=== PATIENT | male | born 1955 | race Caucasian/White ===

== ENCOUNTER 2018-06-22 07:52 | Emergency (ER) | payer OTHER ==
--- OUTSIDE RECORDS SUMMARY | 2018-06-22 08:10 | XMS REPORT ---
:1955 External Reference #:[id number] Author Organization [facility] Address [address], [address] [place] [address] Phone [phone] Care Team Providers Name Role Phone Kate Vora RPAC Care Team Information Curtain Inspector Unavailable Kate Vora RPAC Primary Care Physician Unavailable Payers Type Date Identification Numbers Payment Provider Subscriber Commercial Expires: Policy Number: Lashae Boogielo 2016 [id number] Group Name: Trevon [place] [address] [address] PayID: [id number] ROSA Price [address] Commercial Policy Number: [id number] [facility] [employer] Plan [facility] Ubaldo Boogielo Group Number: [id number] [address] PayID: [id number] [place] [address] Problems Date Description Provider Status Onset: 10/30/2014 Gout Kate Vora RPAC Active Onset: 08/10/2014 Pityriasis versicolor Kate Vora RPAC Active Note: recurrent Onset: 10/17/2011 Hyperlipidemia Kate Vora RPAC Active Onset: 10/17/2011 Benign essential hypertension Kate Vora RPAC Active Onset: 01/31/2018 Asthma without status asthmaticus Kate Vora RPAC Active Onset: 03/25/2018 Paroxysmal atrial fibrillation Kate Vora RPAC Active Note: 03/2018, cardioverted 05/2018 Onset: 04/02/2018 Mixed hyperlipidemia Rae Garcia MD Active Onset: 04/02/2018 Pure hypercholesterolemia Rae Garcia MD Active Onset: 04/02/2018 Unspecified systolic (congestive) Kate Vora, Active heart failure RPAC Onset: 06/07/2018 Cardiomyopathy, unspecified Santiago Cunha Active Juan Carlos, FACC Onset: 12/24/2017 Acute bronchitis Kate Vora, Resolved RPAC Resolved: 03/27/2018 Onset: 01/31/2018 Cough Kate Vora, RPAC Resolved Resolved: 03/27/2018 Family History Date Family Member(s) Problem(s) Comments Father due to Drowning () Mother Glaucoma cataracts Mother Atrial Fibrillation Social History Type Date Description Comments Lives With Alone Diet Healthy, Well Balanced 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 Former Cigarette Smoker Cigars briefly in ETOH Use 02/2015 Quit Etoh Smoking Patient is a former smoker Daily Caffeine Current Caffeine User 1 cup coffee per day Allergies, Adverse Reactions, Alerts Date Description Reaction Status Severity Comments 02/09/2015 NKDA active Medications Medication Date Status Form Strength Qnty SIG Indications Ordering Provider Amiodarone HCL 05/14 Active Tablets 200mg 90tabs 2 tablets Marlin per day Santiago for 7 days M., M.D., and then 1 FACC by mouth every day Ipratropium 04/08 Active Solution 0.03% 30ml 2 sprays Manan to each Reagan nostril M.DZay twice a day Rosuvastatin 04/05 Active Tablets 40mg 90tabs 1 by mouth Manan, Calcium every day Juan Carlos Kirk Loratadine 04/02 Active Tablets 10mg 30tabs 1 tab by R05 Manan, mouth Reagan, every day M.DZay for cough Diltiazem HCL ER 03/26 Active Caps ER 240mg 90caps 1 cap by Manan, 24HR mouth Reagan every day M.DZay Spironolactone 03/26 Active Tablets 25mg 90tabs 1 by mouth Manan, every day Juan Carlos Kirk Famotidine 03/26 Active Tablets 40mg 90tabs 1 by mouth Manan, every day Juan Carlos Kirk Furosemide 03/26 Active Tablets 40mg 90tabs 1 tab by Hinkle mouth Reagan, every day M.D. as needed edema or weight gain > 3lbs Eliquis 03/26 Active Tablets 5mg 180tabs 1 tab by Marlin Leigh puenterge twice a M., M.D., day [facility] Entresto 03/26 Active Tablets 24-26mg 180tabs 1 tab by Marlin mouth , Santiago twice a M., M.D., day [facility] Valtrex Active Tablets 500mg 1 by mouth Unknown /0000 every day as needed Colcrys 04/05 Hx Tablets 0.6mg 14tabs 1 tab by Manan mouth Reagan, - twice a M.D. 05/20 day for gout Digoxin 03/26 Hx Tablets 125mcg 90tabs 1 by mouth Manan, every day Reagan, - M.D. 06/07 Metoprolol 03/26 Hx Tablets 100mg 30tabs 1 by mouth I48.91 Manan, Succinate ER ER 24HR every day. Reagan, - hold for a M.D. 06/07 heart rate of 55 or a systolic blood pressure of 90. Valacyclovir HCL 03/26 Hx Tablets 500mg 1 tab by Reeis-Nov mouth tin, - three Norma, 04/06 times a M.D. 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 03/25 then tab by mouth daily Dulera 01/31 Hx Aerosol 100-5mcg/ sample 1-2 puffs J45.998 Manan Act twice a Reagan, - day M.D. 03/27 Cefuroxime Axetil 10/19 Hx Tablets 500mg 20tabs 1 tab by R05 Manan, mouth Reagan, - twice a M.D. Cheratussin ac 10/19 Hx Syrup 100-10mg/ 118ml 5-10 R05 Manan, 5ML milliliter Reagan, - s by mouth M.D. 12/24 every hour as needed cough Oseltamivir 10/19 Hx Capsules 75mg 10caps 1 cap by Manan, mouth Reagan, - twice a M.D. Fluconazole 02/28 Hx Tablets 100mg 10tabs 1 tab by Manan, mouth Reagan, - twice a M.D. Azithromycin 08/30 Hx Tablets 250mg 5tabs 1 tab by R0Yasmine Owen, mouth Jaycob Grider, - today DO 11/12 Astelin 08/30 Hx Solution 137mcg/Sp 30ml use 2 R0Yasmine Owen ray sprays Jaycob Grider, twice a DO day into each nostril Meclizine HCL 08/29 Hx Tablets 25mg 30tabs one tab by Brayden mouth four Jaycob Grider, - times a DO 08/03 day needed vertigo Klor-Con 03/15 Hx Tablets 8Meq 90tabs 1 by mouth Brayden, ER every day Jaycob Grider, - DO 12/24 Ibuprofen 02/07 Hx Tablets 400mg 100tabs take one M25.561 Brayden, to two Jaycob Grider, tablets by DO mouth every 6 hours for back pain Amlodipine 02/06 Hx Capsules 5-40mg 30caps Take One Manan Besylate/Benazepr Capsule By Reagan, [place] Hydrochloride - Mouth M.D. 03/27 Hydrochlorothiazi 01/25 Hx Capsules 12.5mg 30caps Take One Manan de Capsule By Reagan, - Mouth M.D. 03/25 Uloric 03/03 Hx Tablets 80mg 30tabs 1 tab by Virgie mouth Riana - every day MD 02/15 Colchicine 02/04 Hx Tablets 0.6mg 30tabs 2 tabs now Virgie then 1 tab Riana - one MD svitlana 03/09 repeat in 12 hours as needed Vytorin 10/17 Hx Tablets 10-80mg 30tabs Take One Manan Tablet By Saeed Kirk M.D. 04/05 Every Day /2017 Vital Signs Date Vital Result Comment 06/07/2018 BP Systolic Sitting Right Arm 118 mmHg BP Diastolic Sitting Right Arm 72 mmHg Heart Rate 46 /min Respiratory Rate 18 /min Height 68.75 inches 5'8.75" Weight 197.00 lb BMI (Body Mass Index) 29.3 kg/m2 BSA (Body Surface Area) 2.05 m2 [place] body weight in kilograms 72 O2 % BldC Oximetry 97 % Ora 05/20/2018 Body Temperature 97.8 F Heart Rate 51 /min reg Respiratory Rate 18 /min Height 68.75 inches 5'8.75" Weight 194.00 lb BMI (Body Mass Index) 28.9 kg/m2 BSA (Body Surface Area) 2.03 m2 [place] body weight in kilograms 72 O2 % BldC Oximetry 98 % ra 04/10/2018 BP Systolic Sitting Left Arm 130 mmHg BP Diastolic Sitting Left Arm 64 mmHg Heart Rate 121 /min Respiratory Rate 16 /min Height 68.75 inches 5'8.75" Weight 198.00 lb BMI (Body Mass Index) 29.4 kg/m2 BSA (Body Surface Area) 2.05 m2 [place] body weight in kilograms 72 O2 % BldC Oximetry 97 % 04/02/2018 BP Systolic 140 mmHg BP Diastolic 86 mmHg Body Temperature 99.6 F Heart Rate 55 /min Respiratory Rate 16 /min Height 68.75 inches 5'8.75" Weight 203.00 lb BMI (Body Mass Index) 30.2 kg/m2 BSA (Body Surface Area) 2.07 m2 [place] body weight in kilograms 72 O2 % BldC Oximetry 98 % Ra Pain Level 0 03/25/2018 BP Systolic Sitting Left Arm 152 mmHg BP Diastolic Sitting Left Arm 90 mmHg Body Temperature 100.3 F Heart Rate 106 /min Respiratory Rate 24 /min Height 68.75 inches 5'8.75" Weight 221.00 lb BMI (Body Mass Index) 32.9 kg/m2 BSA (Body Surface Area) 2.15 m2 [place] body weight in kilograms 72 O2 % BldC Oximetry 95 % Ra 01/31/2018 BP Systolic Sitting Left Arm 122 mmHg BP Diastolic Sitting Left Arm 72 mmHg Body Temperature 99.8 F Heart Rate 86 /min Respiratory Rate 18 /min Height 68.75 inches 5'8.75" Weight 220.00 lb BMI (Body Mass Index) 32.7 kg/m2 BSA (Body Surface Area) 2.15 m2 [place] body weight in kilograms 72 O2 % BldC Oximetry 96 % ra 12/24/2017 BP Systolic Sitting Left Arm 154 mmHg BP Diastolic Sitting Left Arm 96 mmHg Body Temperature 99.2 F Heart Rate 110 /min Respiratory Rate 20 /min Height 68.75 inches 5'8.75" Weight 219.00 lb BMI (Body Mass Index) 32.6 kg/m2 BSA (Body Surface Area) 2.14 m2 [place] body weight in kilograms 72 O2 % BldC Oximetry 94 % Ra 10/19/2017 BP Systolic Sitting Left Arm 120 mmHg BP Diastolic Sitting Left Arm 68 mmHg Body Temperature 101.6 F Heart Rate 85 /min Height 68.75 inches 5'8.75" Weight 213.00 lb BMI (Body Mass Index) 31.7 kg/m2 BSA (Body Surface Area) 2.12 m2 [place] body weight in kilograms 72 O2 % BldC Oximetry 98 % ra 08/30/2016 BP Systolic 157 mmHg BP Diastolic 78 mmHg Body Temperature 98.8 F Heart Rate 89 /min Respiratory Rate 16 /min Height 68.75 inches 5'8.75" Weight 218.00 lb BMI (Body Mass Index) 32.4 kg/m2 BSA (Body Surface Area) 2.14 m2 O2 % BldC Oximetry 98 % 03/09/2016 BP Systolic Sitting Right Arm 134 mmHg BP Diastolic Sitting Right Arm 78 mmHg Height 68.75 inches 5'8.75" Weight 212.00 lb BMI (Body Mass Index) 31.5 kg/m2 BSA (Body Surface Area) 2.11 m2 02/17/2016 BP Systolic 160 mmHg BP Diastolic 64 mmHg Heart Rate 80 /min Respiratory Rate 16 /min Height 68.75 inches 5'8.75" Weight 215.00 lb BMI (Body Mass Index) 32.0 kg/m2 BSA (Body Surface Area) 2.12 m2 O2 % BldC Oximetry 98 % 02/08/2016 BP Systolic Sitting Left Arm 140 mmHg BP Diastolic Sitting Left Arm 82 mmHg Heart Rate 80 /min Height 68.75 inches 5'8.75" Weight 215.25 lb BMI (Body Mass Index) 32.0 kg/m2 BSA (Body Surface Area) 2.13 m2 02/15/2015 BP Systolic Sitting Right Arm 161 mmHg BP Diastolic Sitting Right Arm 84 mmHg Heart Rate 82 /min Height 68.75 inches 5'8.75" Weight 222.00 lb BMI (Body Mass Index) 33.0 kg/m2 BSA (Body Surface Area) 2.15 m2 O2 % BldC Oximetry 99 % 02/04/2014 BP Systolic 152 mmHg BP Diastolic 90 mmHg Body Temperature 98.2 F Height 70 inches 5'10" Weight 216.00 lb 11/04/2013 BP Systolic 138 mmHg BP Diastolic 78 mmHg Height 69 inches 5'9" Weight 214.00 lb 10/09/2013 BP Systolic 140 mmHg BP Diastolic 72 mmHg Body Temperature 98.4 F Weight 219.00 lb 04/22/2013 BP Systolic 164 mmHg BP Diastolic 72 mmHg Heart Rate 84 /min Respiratory Rate 20 /min Weight 222.00 lb 06/12/2012 BP Systolic 130 mmHg BP Diastolic 68 mmHg Results Test Date Test Result H/L Range Note Laboratory test finding 05/20/2018 Magnesium 2.2 mg/dL 1.8-2.4 1 Digoxin 0.8 ng/mL 0.8-1.9 1 Uric Acid 5.0 mg/dL 3.5-7.2 1 Renal Function Panel 05/20/2018 Glucose 95 mg/dL 74-106 1 BUN 17 mg/dL 7-18 1 Creatinine 1.1 mg/dL 0.6-1.3 1 Glom Filtration Rate, Estimate >60 mL/min >60 1 If >60 mL/min >60 1, 2 BUN/Creat 15.4 ratio 1 Sodium 138 mmol/L 136-145 1 Potassium 4.5 mmol/L 3.5-5.1 1 Chloride 103 mmol/L 98-107 1 Carbon Dioxide 28 mmol/L 21-32 1 Anion Gap 7 mEq/L Low 8-16 1 Calcium 9.5 mg/dL 8.5-10.1 1 Phosphorous 4.1 mg/dL High 2.5-4.0 1 Laboratory test finding 05/20/2018 Uric Acid <pending> LDL Cholesterol Profile 05/20/2018 Cholesterol 195 mg/dL <200 1, 3 Triglycerides 139 mg/dL <150 1, 4 HDL Cholesterol 62 mg/dL >40 1, 5 LDL-Cholesterol 105 mg/dL < 100 1, 6 CBC W/Automated Diff 05/20/2018 White Blood Count 8.5 K/uL 3.4-10.5 1 Red Blood Count 5.05 M/uL 4.20-5.80 1 Hemoglobin 15.6 gm/dL 12.8-17.0 1 Hematocrit 45.5 % 38.0-48.0 1 Mean Cell Volume 90.1 fl 80.0-96.0 1 Mean Corpuscular HGB 30.9 pg 27.0-33.0 1 Mean Corpuscular HGB Conc 34.3 g/dL 31.7-36.0 1 Platelet Count 251 K/uL 155-360 1 Red Cell Distri Width SD 47.0 fl 36-51 1 Red Cell Distri Width %CV 14.5 % 11.6-15.8 1 Mean Platelet Volume 11.3 fL High 6.6-10.6 1 Neut% 69.6 % 33.0-73.0 1 Lymph % 20.3 % 20.0-42.0 1 [place] % 7.8 % 0.0-10.0 1 Eo% 1.9 % 0.0-6.6 1 Bas% 0.4 % 0.0-1.1 1 Neut# 5.92 K/uL 1.8-7.0 1 Lymph # 1.72 K/uL 1.0-4.0 1 [place] # 0.66 K/uL 0.0-0.8 1 Eos # 0.16 K/uL 0.0-0.5 1 Baso # 0.03 K/uL 0.0-0.1 1 Liver Function Tests 05/20/2018 Total Protein 7.6 g/dL 6.4-8.2 1 Albumin 4.3 g/dL 3.4-5.0 1 Globulin 3.3 g/dL 1.9-4.3 1 Alb/Glob 1.3 ratio 1 Bilirubin,Total 0.9 mg/dL 0.2-1.0 1 Bilirubin,Direct 0.2 mg/dL 0.0-0.2 1 Bilirubin,Indirect 0.7 mg/dL 0.0-0.9 1 Sgot/Ast 24 U/L 15-37 1 SGPT/Alt 34 U/L 12-78 1 Alkaline Phosphatase 56 U/L 45-117 1 Nocturnal Oximetry 04/04/2018 Low Oximetry 83 % Low 93-98 7 Fio2 21 21-100 7 Heart Rate 69 BPM 7 Duration Of Study 507 MINUTES 7 Total Time Below 88% 3.7 MINUTES 7 Continuous Oximetry 04/03/2018 Oximetry 97 % 93-98 7 Fio2 21 21-100 7 Heart Rate 86 BPM 7 Patient Status RESTING 7 Comprehensive Metabolic Panel 04/02/2018 Glucose 122 mg/dL High 74-106 8 BUN 25 mg/dL High 7-18 8 Creatinine 1.3 mg/dL 0.6-1.3 8 Glom Filtration Rate, Estimate 60 mL/min >60 8 If >60 mL/min >60 8, 9 BUN/Creat 19.2 ratio 8 Sodium 141 mmol/L 136-145 8 Potassium 4.2 mmol/L 3.5-5.1 8 Chloride 107 mmol/L 98-107 8 Carbon Dioxide 26 mmol/L 21-32 8 Anion Gap 8 mEq/L 8-16 8 Calcium 9.7 mg/dL 8.5-10.1 8 Total Protein 8.0 g/dL 6.4-8.2 8 Albumin 3.9 g/dL 3.4-5.0 8 Globulin 4.1 g/dL 1.9-4.3 8 Alb/Glob 1.0 ratio 8 Bilirubin,Total 1.3 mg/dL High 0.2-1.0 8 Sgot/Ast 34 U/L 15-37 8 SGPT/Alt 50 U/L 12-78 8 Alkaline Phosphatase 56 U/L 45-117 8 Laboratory test finding 04/02/2018 Magnesium 2.3 mg/dL 1.8-2.4 8 Digoxin 0.5 ng/mL Low 0.8-1.9 8 Serum or plasma 03/26/2018 Serum or plasma 1.4 High 0.6-1.3 creatinine creatinine measurement measurement (mass/volum (mass/volume) Serum or plasma 03/26/2018 Serum or plasma 9.0 8.5-10.1 calcium measurement calcium measurement (mass/volume) (mass/volume) Serum or plasma 03/26/2018 Serum or plasma 25 15-37 aspartate aspartate aminotransferase aminotransferase measure measurement (enzymatic activity/volume) Serum or plasma 03/26/2018 Serum or plasma 53 45-117 alkaline phosphatase alkaline phosphatase measurement ( measurement (enzymatic activity/volume) Serum or plasma 03/26/2018 Serum or plasma 4.0 3.4-5.0 albumin measurement albumin measurement (mass/volume) (mass/volume) Serum carbon dioxide 03/26/2018 Serum carbon dioxide 27 21-32 measurement measurement RDW RBC Auto-Rto 03/26/2018 RDW RBC Auto-Rto 14.6 11.6-15.8 RDW RBC Auto 03/26/2018 RDW RBC Auto 47.4 36-51 Potassium SerPl-sCnc 03/26/2018 Potassium SerPl-sCnc 3.8 3.5-5.1 Neutrophils/leuk NFr 03/26/2018 Neutrophils/leuk NFr 67.5 33.0-73.0 Bld Auto Bld Auto Neutrophils # Bld 03/26/2018 Neutrophils # Bld 5.05 1.8-7.0 Auto Auto Monocytes/leuk NFr 03/26/2018 Monocytes/leuk NFr 13.8 High 0.0-10.0 Bld Auto Bld Auto Serum or plasma 03/26/2018 Serum or plasma 124 High 74-106 glucose measurement glucose measurement (mass/volume) (mass/volume) Serum or plasma 03/26/2018 Serum or plasma 7.8 6.4-8.2 protein measurement protein measurement (mass/volume) (mass/volume) Serum or plasma 03/26/2018 Serum or plasma 1.4 High 0.2-1.0 total bilirubin total bilirubin measurement (mass/ measurement (mass/volume) Serum or plasma urea 03/26/2018 Serum or plasma urea 17 7-18 nitrogen measurement nitrogen measurement (mass/vo (mass/volume) Serum sodium 03/26/2018 Serum sodium 141 136-145 measurement measurement Laboratory test 03/26/2018 Troponin-I < 0.015 ng/mL 10, finding 11 Unloinc 03/26/2018 Unloinc Ambulating Heart rate by 03/26/2018 Heart rate by 80 oximetry oximetry Determination of 03/26/2018 Determination of 21 21-100 inhaled oxygen inhaled oxygen concentration (vol concentration (volume fraction) Arterial blood 03/26/2018 Arterial blood 94 93-98 oxygen saturation oxygen saturation measurement by pu measurement by pulse oximetry Continuous Oximetry 03/26/2018 Oximetry 94 % 93-98 10 Fio2 21 21-100 10 Heart Rate 80 BPM 10 Patient Status AMBULATING 10 Continuous Oximetry 03/26/2018 Oximetry 97 % 93-98 10 Fio2 21 21-100 10 Heart Rate 75 BPM 10 Patient Status RESTING 10 Patient Position SITTING UP IN BE <SEE NOTE> 10, 12 Unloinc 03/26/2018 Unloinc Sitting Up In Bed Comprehensive Metabolic Panel 03/26/2018 Glucose 124 mg/dL High 74-106 10 BUN 17 mg/dL 7-18 10 Creatinine 1.4 mg/dL High 0.6-1.3 10 Glom Filtration Rate, Estimate 55 mL/min >60 10 If >60 mL/min >60 10, 13 BUN/Creat 12.1 ratio 10 Sodium 141 mmol/L 136-145 10 Potassium 3.8 mmol/L 3.5-5.1 10 Chloride 104 mmol/L 98-107 10 Carbon Dioxide 27 mmol/L 21-32 10 Anion Gap 10 mEq/L 8-16 10 Calcium 9.0 mg/dL 8.5-10.1 10 Total Protein 7.8 g/dL 6.4-8.2 10 Albumin 4.0 g/dL 3.4-5.0 10 Globulin 3.8 g/dL 1.9-4.3 10 Alb/Glob 1.1 ratio 10 Bilirubin,Total 1.4 mg/dL High 0.2-1.0 10 Sgot/Ast 25 U/L 15-37 10 SGPT/Alt 40 U/L 12-78 10 Alkaline Phosphatase 53 U/L 45-117 10 Laboratory test finding 03/26/2018 Magnesium 2.3 mg/dL 1.8-2.4 10 CBS W/Automated Diff 03/26/2018 White Blood Count 7.5 K/uL 3.4-10.5 10 Red Blood Count 4.71 M/uL 4.20-5.80 10 Hemoglobin 14.7 gm/dL 12.8-17.0 10 Hematocrit 43.3 % 38.0-48.0 10 Mean Cell Volume 91.9 fl 80.0-96.0 10 Mean Corpuscular HGB 31.2 pg 27.0-33.0 10 Mean Corpuscular HGB Conc 33.9 g/dL 31.7-36.0 10 Platelet Count 227 K/uL 155-360 10 Red Cell Distri Width SD 47.4 fl 36-51 10 Red Cell Distri Width %CV 14.6 % 11.6-15.8 10 Mean Platelet Volume 10.9 fL High 6.6-10.6 10 Neut% 67.5 % 33.0-73.0 10 Lymph % 17.6 % Low 20.0-42.0 10 Pleas[place] % 13.8 % High 0.0-10.0 10 Eo% 0.4 % 0.0-6.6 10 Bas% 0.7 % 0.0-1.1 10 Neut# 5.05 K/uL 1.8-7.0 10 Lymph # 1.32 K/uL 1.0-4.0 10 [place] # 1.03 K/uL High 0.0-0.8 10 Eos # 0.03 K/uL 0.0-0.5 10 Baso # 0.05 K/uL 0.0-0.1 10 Laboratory test 03/26/2018 Act Partial Thrombo 56.3 seconds High 23.4- 35.0 10, 14 finding Time Alt SerPl-cCnc 03/26/2018 Alt SerPl-cCnc 40 12-78 Albumin/Glob SerPl 03/26/2018 Albumin/Glob SerPl 1.1 Anion Gap 03/26/2018 Anion Gap SerPl-sCnc 10 8-16 SerPl-sCnc Automated blood 03/26/2018 Automated blood 0.05 0.0-0.1 basophil count basophil count (count/volume) (count/volume) Automated blood 03/26/2018 Automated blood 0.03 0.0-0.5 eosinophil count eosinophil count Automated blood 03/26/2018 Automated blood 43.3 38.0-48.0 hematocrit (volume hematocrit (volume fraction) fraction) Automated blood 03/26/2018 Automated blood 1.32 1.0-4.0 lymphocyte count lymphocyte count (number/volume) (number/volume) Automated blood 03/26/2018 Automated blood 227 155-360 platelet count platelet count Lymphocytes/leuk 03/26/2018 Lymphocytes/leuk NFr 17.6 Low 20.0-42.0 NFr Bld Auto Bld Auto Globulin Ser 03/26/2018 Globulin Ser 3.8 1.9-4.3 Calc-mCnc Calc-mCnc GFR/Bsa pred.non 03/26/2018 GFR/Bsa pred.non 55 >60 black SerPl black SerPl MDRD-ArVRat MDRD-ArVRat Eosinophil/leuk NFr 03/26/2018 Eosinophil/leuk NFr 0.4 0.0-6.6 Bld Auto Bld Auto Chloride SerPl-sCnc 03/26/2018 Chloride SerPl-sCnc 104 98-107 Blood monocytes 03/26/2018 Blood monocytes 1.03 High 0.0-0.8 automated count automated count (number/volume) (number/volume) Blood leukocytes 03/26/2018 Blood leukocytes 7.5 3.4-10.5 automated count automated count (number/volume) (number/volume) Blood hemoglobin 03/26/2018 Blood hemoglobin 14.7 12.8-17.0 measurement measurement (mass/volume) (mass/volume) Blood erythrocytes 03/26/2018 Blood erythrocytes 4.71 4.20-5.80 automated count automated count (number/volume) (number/volume) Basophils/leuk NFr 03/26/2018 Basophils/leuk NFr 0.7 0.0-1.1 Bld Auto Bld Auto BUN/Creat SerPl 03/26/2018 BUN/Creat SerPl 12.1 Automated blood 03/26/2018 Automated blood 10.9 High 6.6-10.6 platelet mean platelet mean volume volume measurement measurement Automated 03/26/2018 Automated 31.2 27.0-33.0 erythrocyte mean erythrocyte mean corpuscular corpuscular hemoglobin hemoglobin (mass per erythrocyte) Automated 03/26/2018 Automated 33.9 31.7-36.0 erythrocyte mean erythrocyte mean corpuscular corpuscular hemoglobin hemoglobin concentration measurement (mass/volume) Automated 03/26/2018 Automated 91.9 80.0-96.0 erythrocyte mean erythrocyte mean corpuscular volume corpuscular volume Laboratory test 03/25/2018 Potassium 3.9 mmol/L 3.5-5.1 10 finding Magnesium 2.4 mg/dL 1.8-2.4 10 Laboratory test 03/25/2018 Act Partial 61.4 seconds High 23.4-35.0 10 finding Thrombo Time Laboratory test 03/25/2018 Troponin-I < 0.015 ng/mL 10, 15 finding Aot Request 03/25/2018 Aot Request Test(s) added 10, 16 Tests to be added: tsh free t3 free <SEE NOTE> 10, 17 * Miscellaneous studies 03/25/2018 * Miscellaneous studies Test(s) added (set) (set) Aot Request 03/25/2018 Aot Request Test(s) added 18, 19 Tests to be added: ddimer 18 Comprehensive Metabolic Panel 03/25/2018 Glucose 125 mg/dL High 74-106 18 BUN 18 mg/dL 7-18 18 Creatinine 1.3 mg/dL 0.6-1.3 18 Glom Filtration Rate, Estimate 60 mL/min >60 18 If >60 mL/min >60 18, 20 BUN/Creat 13.8 ratio 18 Sodium 140 mmol/L 136-145 18 Potassium 3.4 mmol/L Low 3.5-5.1 18 Chloride 106 mmol/L 98-107 18 Carbon Dioxide 23 mmol/L 21-32 18 Anion Gap 11 mEq/L 8-16 18 Calcium 8.9 mg/dL 8.5-10.1 18 Total Protein 8.1 g/dL 6.4-8.2 18 Albumin 4.1 g/dL 3.4-5.0 18 Globulin 4.0 g/dL 1.9-4.3 18 Alb/Glob 1.0 ratio 18 Bilirubin,Total 1.0 mg/dL 0.2-1.0 18 Sgot/Ast 30 U/L 15-37 18 SGPT/Alt 48 U/L 12-78 18 Alkaline Phosphatase 56 U/L 45-117 18 Unloinc 03/25/2018 Unloinc Diff Ordered Laboratory test finding 03/25/2018 Magnesium 2.1 mg/dL 1.8-2.4 18 NT-proBNP 3160.0 pg/mL High <125 18 Troponin-I < 0.015 ng/mL 18, 21 Thyroid Stim Hormone 1.80 uIU/mL 0.30-4.20 18 CBS W/Automated Diff 03/25/2018 White Blood Count 10.2 K/uL 3.4-10.5 18 Red Blood Count 4.67 M/uL 4.20-5.80 18 Hemoglobin 14.3 gm/dL 12.8-17.0 18 Hematocrit 43.0 % 38.0-48.0 18 Mean Cell Volume 92.1 fl 80.0-96.0 18 Mean Corpuscular HGB 30.6 pg 27.0-33.0 18 Mean Corpuscular HGB Conc 33.3 g/dL 31.7-36.0 18 Platelet Count 219 K/uL 155-360 18 Red Cell Distri Width SD 46.3 fl 36-51 18 Red Cell Distri Width %CV 14.1 % 11.6-15.8 18 Mean Platelet Volume 10.9 fL High 6.6-10.6 18 Neut% 75.1 % High 33.0-73.0 18 Lymph % 13.5 % Low 20.0-42.0 18 [place] % 10.8 % High 0.0-10.0 18 Eo% 0.2 % 0.0-6.6 18 Bas% 0.4 % 0.0-1.1 18 Neut# 7.68 K/uL High 1.8-7.0 18 Lymph # 1.38 K/uL 1.0-4.0 18 [place] # 1.10 K/uL High 0.0-0.8 18 Eos # 0.02 K/uL 0.0-0.5 18 Baso # 0.04 K/uL 0.0-0.1 18 Slide Review 03/25/2018 Slide Review DIFF ORDERED 18 Differential-WBC Confirm 03/25/2018 Total Cells Counted 100 #CELLS 18 Band% 2 % 0-8 18 Neutrophils% 70 % 33-73 18 Lymph% 14 % Low 20-42 18 Atypical Lymph% 3 % 0-7 18 Monocyte% 10 % 0-10 18 Basophil% 1 % 0-2 18 Platelet Estimate NORMAL 18 Laboratory test finding 03/25/2018 D-Dimer, Quantitative 0.48 ug/mL 18 , 22 Act Partial Thrombo Time 27.8 seconds 23.4-35.0 18 Free T3 2.83 pg/mL 2.18-3.98 18 Free T4 0.93 ng/dL 0.76-1.46 18 C-Reactive Protein,Quant 3.7 mg/L High <3.0 18 Blood platelet adequacy 03/25/2018 Blood platelet adequacy Normal detection by light detection by light microsc microscopy Blood total cell count 03/25/2018 Blood total cell count 100 Fibrin D-dimer Feu 03/25/2018 Fibrin D-dimer Feu 0.48 measurement in platelet measurement in platelet poor pl poor plasma (mass/volume) Manual blood band 03/25/2018 Manual blood band 2 0-8 neutrophils form/100 neutrophils form/100 leukocytes leukocytes Manual blood 03/25/2018 Manual blood 1 0-2 basophils/100 leukocytes basophils/100 leukocytes Manual blood 03/25/2018 Manual blood 14 Low 20-42 lymphocytes/100 lymphocytes/100 leukocytes leukocytes Manual blood 03/25/2018 Manual blood 10 0-10 monocytes/100 leukocytes monocytes/100 leukocytes Manual blood segmented 03/25/2018 Manual blood segmented 70 33-73 neutrophils/100 neutrophils/100 leukocytes leukocytes Serum or plasma 03/25/2018 Serum or plasma 3160.0 High <125 natriuretic peptide B natriuretic peptide B prohormone N prohormone N-terminal measurement (mass/volume) Manual blood variant 03/25/2018 Manual blood variant 3 0-7 lymphocytes as percentage lymphocytes as of percentage of leukocytes Comprehensive Metabolic 02/01/2018 Sodium 139 mmol/L 139-145 Panel Potassium 3.8 mmol/L 3.5-5.0 Chloride 105 mmol/L 101-111 Co2 Carbon Dioxide 25 mmol/L 22-32 Anion Gap 9 mmol/L 2-11 Glucose 112 mg/dL High 70-100 Blood Urea Nitrogen 24 mg/dL 6-24 Creatinine 0.97 mg/dL 0.67-1.17 BUN/Creatinine Ratio 24.7 High 8-20 Calcium 9.9 mg/dL 8.6-10.3 Total Protein 7.0 g/dL 6.4-8.9 Albumin 4.5 g/dL 3.2-5.2 Globulin 2.5 g/dL 2-4 Albumin/Globulin Ratio 1.8 1-3 Total Bilirubin 1.10 mg/dL High 0.2-1.0 Alkaline Phosphatase 46 U/L 34-104 Alt 19 U/L 7-52 Ast 18 U/L 13-39 Egfr Non- 78.9 >60 Egfr 101.5 >60 23 LDL Cholesterol Profile 02/01/2018 Triglycerides 164 mg/dL 24 Cholesterol 167 mg/dL 25 HDL Cholesterol 64.8 mg/dL 26 LDL Cholesterol 69 mg/dL 27 CBS W/Automated Diff 02/01/2018 White Blood Count 8.4 10^3/uL 3.5-10.8 Red Blood Count 4.63 10^6/uL 4.0-5.4 Hemoglobin 14.4 g/dL 14.0-18.0 Hematocrit 43 % 42-52 Mean Corpuscular Volume 93 fL 80-94 Mean Corpuscular Hemoglobin 31 pg 27-31 Mean Corpuscular HGB Conc 33 g/dL 31-36 Red Cell Distribution Width 14 % 10.5-15 Platelet Count 251 10^3/uL 150-450 Mean Platelet Volume 9.3 um3 7.4-10.4 Abs Neutrophils 4.8 10^3/uL 1.5-7.7 Abs Lymphocytes 2.5 10^3/uL 1.0-4.8 Abs Monocytes 1.0 10^3/uL High 0-0.8 Abs Eosinophils 0.1 10^3/uL 0-0.6 Abs Basophils 0.1 10^3/uL 0-0.2 Abs Nucleated RBC 0 10^3/uL Granulocyte % 56.4 % 38-83 Lymphocyte % 29.8 % 25-47 Monocyte % 11.4 % High 0-7 Eosinophil % 1.4 % 0-6 Basophil % 1.0 % 0-2 Nucleated Red Blood Cells % 0 Laboratory test finding 02/01/2018 Creatine Kinase 129 U/L 10-223 PSA Screening 1.724 ng/mL 0-4.000 28 Influenza A/B Antigen 10/19/2017 Influenza A Antigen Negative (Negative) Influenza B Antigen POSITIVE (Negative) 29 LDL Cholesterol Profile 06/29/2017 Cholesterol 200 mg/dL <200 30, 31 Triglycerides 131 mg/dL <150 30, 32 HDL Cholesterol 79 mg/dL >40 30, 33 LDL-Cholesterol 95 mg/dL < 100 30, 34 Liver Function Tests 06/29/2017 Total Protein 7.8 g/dL 6.4-8.2 30 Albumin 4.1 g/dL 3.4-5.0 30 Globulin 3.7 g/dL 1.9-4.3 30 Alb/Glob 1.1 ratio 30 Bilirubin,Total 0.5 mg/dL 0.2-1.0 30 Bilirubin,Direct 0.1 mg/dL 0.0-0.2 30 Bilirubin,Indirect 0.4 mg/dL 0.0-0.9 30 Sgot/Ast 30 U/L 15-37 30 SGPT/Alt 41 U/L 12-78 30 Alkaline Phosphatase 45 U/L 45-117 30 Laboratory test finding 06/29/2017 CK 114 U/L 39-308 30 Basic Metabolic Panel 06/29/2017 Glucose 106 mg/dL 74-106 30 BUN 17 mg/dL 7-18 30 Creatinine 1.0 mg/dL 0.6-1.3 30 Glom Filtration Rate, Estimate >60 mL/min >60 30 If >60 mL/min >60 30, 35 BUN/Creat 17.0 ratio 30 Sodium 138 mmol/L 136-145 30 Potassium 4.2 mmol/L 3.5-5.1 30 Chloride 103 mmol/L 98-107 30 Carbon Dioxide 29 mmol/L 21-32 30 Anion Gap 6 mEq/L Low 8-16 30 Calcium 9.4 mg/dL 8.5-10.1 30 Comprehensive Metabolic Panel 03/09/2016 Glucose 85 mg/dL 74-106 BUN 21 mg/dL High 7-18 Creatinine 0.9 mg/dL 0.6-1.3 Glom Filtration Rate, Estimate >60 mL/min >60 If >60 mL/min >60 36 BUN/Creat 23.3 ratio Sodium 137 mmol/L 136-145 Potassium 3.4 mmol/L Low 3.5-5.1 Chloride 103 mmol/L 98-107 Carbon Dioxide 27 mmol/L 21-32 Anion Gap 7 mEq/L Low 8-16 Calcium 8.6 mg/dL 8.5-10.1 Total Protein 7.9 g/dL 6.4-8.2 Albumin 3.6 g/dL 3.4-5.0 Globulin 4.3 g/dL 1.9-4.3 Alb/Glob 0.8 ratio Bilirubin,Total 0.5 mg/dL 0.2-1.0 Sgot/Ast 16 U/L 15-37 SGPT/Alt 26 U/L 12-78 Alkaline Phosphatase 68 U/L 45-117 Laboratory test finding 03/09/2016 Prostate Specific Antigen 1.33 ng/mL 37 LDL Cholesterol Profile 03/09/2016 Cholesterol 164 mg/dL <200 38 Triglycerides 132 mg/dL <150 39 HDL Cholesterol 47 mg/dL >40 40 LDL-Cholesterol 91 mg/dL < 100 41 Liver Function Tests 10/27/2014 Alb/Glob 1.2 ratio Albumin 4.2 g/dL 3.4-5.0 Alkaline Phosphatase 55 U/L 45-117 Bilirubin,Direct 0.1 mg/dL 0.0-0.2 Bilirubin,Indirect 0.6 mg/dL 0.0-0.9 Bilirubin,Total 0.7 mg/dL 0.2-1.0 Globulin 3.4 g/dL 1.9-4.3 SGPT/Alt 32 U/L 12-78 Sgot/Ast 20 U/L 15-37 Total Protein 7.6 g/dL 6.4-8.2 LDL Cholesterol Profile 10/27/2014 Cholesterol 186 mg/dL < 200 42 HDL Cholesterol 64 mg/dL > 40 43 LDL-Cholesterol 70 mg/dL < 100 44 Triglycerides 259 mg/dL < 150 45 Laboratory test finding 10/27/2014 CK 132 U/L 39-308 Prostate Specific Antigen 0.79 ng/mL 46 LDL Cholesterol Profile 02/04/2014 Cholesterol 156 mg/dL 120-200 HDL Cholesterol 51 mg/dL 29-83 LDL-Cholesterol 75 mg/dL 62-185 Triglycerides 152 mg/dL 16-231 CBC W/Automated Diff 02/04/2014 Bas% 0.6 % 0.1-1.0 Baso # 0.04 K/uL Low 0.1-0.2 Eo% 1.4 % 0.0-5.0 Eos # 0.09 K/uL 0.0-0.5 Hematocrit 40.3 % 38.0-48.0 Hemoglobin 14.1 gm/dL 12.8-17.0 Lymph # 1.88 K/uL 1.2-4.0 Lymph % 30.2 % 17.0-56.0 Mean Cell Volume 90.4 fl 80.0-96.0 Mean Corpuscular HGB 31.6 pg 27.0-33.0 Mean Corpuscular HGB Conc 35.0 g/dL 31.7-36.0 Mean Platelet Volume 10.6 fL 6.6-10.6 Pleasants # 0.77 K/uL High 0.0-0.6 Pleasants % 12.4 % High 0.0-10.0 Neut# 3.45 K/uL 1.8-7.0 Neut% 55.4 % 33.0-73.0 Platelet Count 320 K/uL 150-400 Red Blood Count 4.46 M/uL 4.20-5.80 Red Cell Distri Width %CV 13.1 % 11.6-15.8 Red Cell Distri Width SD 42.2 fl 36-51 White Blood Count 6.2 K/uL 3.4-10.5 Basic Metabolic Panel 02/04/2014 Anion Gap 10 mEq/L 8-16 BUN 18 mg/dL 5-23 BUN/Creat 22.5 ratio Calcium 9.7 mg/dL 8.5-10.1 Carbon Dioxide 28 mEq/L 18-29 Chloride 103 mmol/L 98-107 Creatinine 0.8 mg/dL 0.5-1.4 Glom Filtration Rate, Estimate >60 mL/min >60 Glucose 95 mg/dL 76-115 If >60 mL/min >60 47 Potassium 3.9 mmol/L 3.5-5.1 Sodium 137 mmol/L 136-145 Laboratory test finding 02/04/2014 C-Reactive Protein,Quant 9.3 mg/L High 0.0-4.9 CK 112 U/L 26-190 Sedimentation Rate 47 mm/hr High 0-20 Uric Acid 6.2 mg/dL 2.1-7.4 Liver Function Panel 08/06/2013 Albumin 4.3 g/dL 3.6-5.4 Albumin/Globulin Ratio 2.0 1-3 Alkaline Phosphatase 41 U/L 30-110 Alt 25 U/L 14-54 Ast 24 U/L 12-42 Direct Bilirubin 0.2 mg/dL 0.1-0.5 Globulin 2.2 g/dL 2-4 Indirect Bilirubin 0.8 mg/dL 0.3-1.0 Total Bilirubin 1.0 mg/dL 0.4-1.5 Total Protein 6.5 g/dL 6.2-8.1 Lipid Profile (Trig/Chol/HDL) 08/06/2013 Cholesterol 202 mg/dL High Less than 200 Cholesterol/HDL Ratio 3.0 Average 1-4.44 HDL Cholesterol 67 mg/dL High 40-60 48 LDL Cholesterol 96.4 Less Than 100 49 Triglycerides 193 mg/dL 40-200 CBC Auto Diff 08/06/2013 Abs Basophils 0 10^3/uL 0-0.2 Abs Eosinophils 0.1 10^3/uL 0-0.6 Abs Lymphocytes 2.1 10^3/uL 1.0-4.8 Abs Monocytes 0.7 10^3/uL 0-0.8 Abs Neutrophils 3.5 10^3/uL 1.5-7.7 Abs Nucleated RBC 0.01 10^3/uL Basophil % 0.6 % 0-2 Eosinophil % 2.2 % 0-6 Granulocyte % 54.1 % 38-83 Hematocrit 42 % 42-52 Hemoglobin 14.7 g/dL 14.0-18.0 Lymphocyte % 32.4 % 25-47 Mean Corpuscular HGB Conc 35 g/dL 31-36 Mean Corpuscular Hemoglobin 32 pg High 27-31 Mean Corpuscular Volume 91 fL 80-94 Mean Platelet Volume 9 um3 7.4-10.4 Monocyte % 10.7 % High 1-9 Nucleated Red Blood Cells % 0.1 Platelet Count 254 10^3/uL 150-450 Red Blood Count 4.66 10^6/uL 4.0-5.4 Red Cell Distribution Width 13 % 10.5-15 White Blood Count 6.6 10^3/uL 4.8-10.8 Basic Metabolic Panel 08/06/2013 Anion Gap 9.0 mmol/L 2-11 BUN/Creatinine Ratio 17.0 8-20 Blood Urea Nitrogen 17 mg/dL 6-24 Calcium 9.4 mg/dL 8.1-9.9 Chloride 102 mmol/L 101-111 Co2 Carbon Dioxide 26.0 mmol/L 22-32 Creatinine 1.00 mg/dL 0.50-1.40 Egfr 99.8 >60 50 Egfr Non- 77.6 >60 Glucose 105 mg/dL High 70-100 Potassium 4.4 mmol/L 3.5-5.0 Sodium 137 mmol/L 133-145 Laboratory test finding 08/06/2013 Creatine Kinase 104 U/L 0-200 PSA Diagnostic 0.662 ng/mL 0-4.000 1 E78.2 I50.22 I48.91 2 Note: Persistent reduction for 3 months or more in an eGFR <60 mL/min/1.73 m2 defines CKD. Patients with eGFR values >/=60 mL/min/1.73 m2 may also have CKD if evidence of persistent proteinuria is present. The original MDRD equation for estimated GFR is not valid for patients less than 18 years of age. Additional information may be found at www.[email or web address]. 3 Reference Guidelines*: Desirable: ........... < 200 mg/dL Borderline High: ..... 200-239 mg/dL High: ................ >=240 mg/dL * The National Cholesterol Education Program (NCEP) 4 Reference Guidelines*: Normal: ............. < 150 mg/dL Borderline High: .... 150-199 mg/dL High: ............... 200-499 mg/dL Very High: .......... > 500 mg/dL * Source: National Cholesterol Education Program (NCEP) 5 Reference Guidelines*: Low HDL: ..... < 40 mg/dL Normal: ..... 40-60 mg/dL Desirable: ... > 60 mg/dL *The National Cholesterol Education Program(NCEP) 6 Reference Guidelines*: Optimal:........... <100 mg/dL Near Optimal....... 100-129 mg/dL Borderline High.... 130-159 mg/dL High............... 160-189 mg/dL Very High.......... >=190 mg/dL * Source: National Cholesterol Education Program (NCEP) 7 R06.02 SOB,I48.0 PAROXYAMAL ATRIAL FIB 8 DIGOXIN CMP MAGNESIUM NON FASTING 9 Note: Persistent reduction for 3 months or more in an eGFR <60 mL/min/1.73 m2 defines CKD. Patients with eGFR values >/=60 mL/min/1.73 m2 may also have CKD if evidence of persistent proteinuria is present. The original MDRD equation for estimated GFR is not valid for patients less than 18 years of age. Additional information may be found at www.kdoqi.org. 10 AFIB,CHF NEW 11 0.0 - 0.045 ng/mL: Normal 0.046 - 0.5 ng/mL: Suggestive 0.6 - 1.5 ng/mL: Consistent 12 SITTING UP IN BED 13 Note: Persistent reduction for 3 months or more in an eGFR <60 mL/min/1.73 m2 defines CKD. Patients with eGFR values >/=60 mL/min/1.73 m2 may also have CKD if evidence of persistent proteinuria is present. The original MDRD equation for estimated GFR is not valid for patients less than 18 years of age. Additional information may be found at www.[email or web address]. 14 Is patient on heparin protocol? Y 15 0.0 - 0.045 ng/mL: Normal 0.046 - 0.5 ng/mL: Suggestive 0.6 - 1.5 ng/mL: Consistent 16 Tests: tsh free t3 free t4 crp magnesium Instructions: 17 tsh free t3 free t4 crp magnesium 18 COUGHING, LEGS ARE SWOLLEN, SENT BY 19 Tests: ddimer Instructions: 20 Note: Persistent reduction for 3 months or more in an eGFR <60 mL/min/1.73 m2 defines CKD. Patients with eGFR values >/=60 mL/min/1.73 m2 may also have CKD if evidence of persistent proteinuria is present. The original MDRD equation for estimated GFR is not valid for patients less than 18 years of age. Additional information may be found at www.[email or web address]. 21 0.0 - 0.045 ng/mL: Normal 0.046 - 0.5 ng/mL: Suggestive 0.6 - 1.5 ng/mL: Consistent 22 <=0.49 ug/mL - Low likelihood of DIC, DVT or Pulmonary Embolism >0.49 ug/mL - Additional testing should be done to rule out DIC, DVT, or Pulmonary embolism as clinically indicated. ([facility] has established a 97.89% negative predictive value for thrombotic disease when a cutoff value of 0.5 ug/mL is used.) 23 Because ethnic data is not always readily available, this report includes an eGFR for both -Americans and non- Americans. The National Kidney Disease Education Program (NKDEP) does not endorse the use of the MDRD equation for patients that are not between the ages of 18 and 70, are , have extremes of body size, muscle mass, or nutritional status, or are non- or non-. According to the National Kidney Foundation, irrespective of diagnosis, the stage of the disease is based on the level of kidney function: Stage Description GFR(mL/min/1.73 m(2)) 1 Kidney damage with normal or decreased GFR 90 2 Kidney damage with mild decrease in GFR 60-89 3 Moderate decrease in GFR 30-59 4 Severe decrease in GFR 15-29 5 Kidney failure <15 (or dialysis) 24 Desirable: <150 Borderline High: 150-199 High: 200-499 Very High: >500 25 Desirable: <200 Borderline High: 200-239 High: >239 26 Low: <40 Desirable: 40-60 High: >60 27 Desirable: <100 Near Optimal: 100-129 Borderline High: 130-159 High: 160-189 Very High: >189 28 Serum levels of PSA measured using the [employer] DXI Hybritech immunoassay should not be interpreted as absolute evidence of the presence or absence of disease. The PSA value should be used in conjunction with other pertinent clinical diagnostic procedures. The values obtained with different assay methods or kits cannot be used interchangeably. 29 Please Note: A POSITIVE result for influenza A and/or B antigen does not rule out a co-infection with other pathogens or identify any specific influenza A virus subtype. A NEGATIVE result for influenza A and/or B antigen does not preclude influenza virus infection and should not be the sole basis for treatment or other management decisions, since the antigen present in the specimen may be below the detection limit of the test. A NEGATIVE result is PRESUMPTIVE and it is recommended these results be confirmed by virus culture or an FDA-cleared influenza A and B molecular assay. Method: [facility] Chromatographic immunoassay 30 E78.5 31 Reference Guidelines*: Desirable: ........... < 200 mg/dL Borderline High: ..... 200-239 mg/dL High: ................ >=240 mg/dL * The National Cholesterol Education Program (NCEP) 32 Reference Guidelines*: Normal: ............. < 150 mg/dL Borderline High: .... 150-199 mg/dL High: ............... 200-499 mg/dL Very High: .......... > 500 mg/dL * Source: National Cholesterol Education Program (NCEP) 33 Reference Guidelines*: Low HDL: ..... < 40 mg/dL Normal: ..... 40-60 mg/dL Desirable: ... > 60 mg/dL *The National Cholesterol Education Program(NCEP) 34 Reference Guidelines*: Optimal:........... <100 mg/dL Near Optimal....... 100-129 mg/dL Borderline High.... 130-159 mg/dL High............... 160-189 mg/dL Very High.......... >=190 mg/dL * Source: National Cholesterol Education Program (NCEP) 35 Note: Persistent reduction for 3 months or more in an eGFR <60 mL/min/1.73 m2 defines CKD. Patients with eGFR values >/=60 mL/min/1.73 m2 may also have CKD if evidence of persistent proteinuria is present. The original MDRD equation for estimated GFR is not valid for patients less than 18 years of age. Additional information may be found at www.kdoqi.org. 36 Note: Persistent reduction for 3 months or more in an eGFR <60 mL/min/1.73 m2 defines CKD. Patients with eGFR values >/=60 mL/min/1.73 m2 may also have CKD if evidence of persistent proteinuria is present. The original MDRD equation for estimated GFR is not valid for patients less than 18 years of age. Additional information may be found at www.kdoqi.org. 37 THIS ASSAY IS NOT INTENDED A CANCER SCREENING TEST The concentration of PSA in a given specimen, determined with assays from different manufacturers, can vary due to differences in assay methods and reagent specificity. Values obtained from different assay methods cannot be used interchangeably. 38 Reference Guidelines*: Desirable: ........... < 200 mg/dL Borderline High: ..... 200-239 mg/dL High: ................ >=240 mg/dL * The National Cholesterol Education Program (NCEP) 39 Reference Guidelines*: Normal: ............. < 150 mg/dL Borderline High: .... 150-199 mg/dL High: ............... 200-499 mg/dL Very High: .......... > 500 mg/dL * Source: National Cholesterol Education Program (NCEP) 40 Reference Guidelines*: Low HDL: ..... < 40 mg/dL Normal: ..... 40-60 mg/dL Desirable: ... > 60 mg/dL *The National Cholesterol Education Program(NCEP) 41 Reference Guidelines*: Optimal:........... <100 mg/dL Near Optimal....... 100-129 mg/dL Borderline High.... 130-159 mg/dL High............... 160-189 mg/dL Very High.......... >=190 mg/dL * Source: National Cholesterol Education Program (NCEP) 42 Reference Guidelines*: Desirable: ........... < 200 mg/dL Borderline High: ..... 200-239 mg/dL High: ................ >=240 mg/dL * The National Cholesterol Education Program (NCEP) 43 Reference Guidelines*: Low HDL: ..... < 40 mg/dL Normal: ..... 40-60 mg/dL Desirable: ... > 60 mg/dL *The National Cholesterol Education Program(NCEP) 44 Reference Guidelines*: Optimal:........... <100 mg/dL Near Optimal....... 100-129 mg/dL Borderline High.... 130-159 mg/dL High............... 160-189 mg/dL Very High.......... >=190 mg/dL * Source: National Cholesterol Education Program ( NCEP) 45 Reference Guidelines*: Normal: ............. < 150 mg/dL Borderline High: .... 150-199 mg/dL High: ............... 200-499 mg/dL Very High: .......... > 500 mg/dL * Source: National Cholesterol Education Program (NCEP) 46 THIS ASSAY IS NOT INTENDED A CANCER SCREENING TEST The concentration of PSA in a given specimen, determined with assays from different manufacturers, can vary due to differences in assay methods and reagent specificity. Values obtained from different assay methods cannot be used interchangeably. 47 Note: Persistent reduction for 3 months or more in an eGFR <60 mL/min/1.73 m2 defines CKD. Patients with eGFR values >/=60 mL/min/1.73 m2 may also have CKD if evidence of persistent proteinuria is present. The original MDRD equation for estimated GFR is not valid for patients less than 18 years of age. Additional information may be found at www.kdoqi.org. 48 HDL Interpretation: Undesirable: High Risk: Less than 40 mg/dL Desirable: Low Risk: Greater than 60 mg/dL 49 LDL Interpretation: Low Risk Optimal Level: LDL Less than 100 mg/dL Near or Above Optimal: LDL 100-129 mg/dL Borderline High Risk: LDL 130-159 mg/dL High Risk : LDL 160-189 mg/dL Very High Risk: LDL Greater than 189 mg/dL 50 Because ethnic data is not always readily available, this report includes an eGFR for both -Americans and non- Americans. The National Kidney Disease Education Program (NKDEP) does not endorse the use of the MDRD equation for patients that are not between the ages of 18 and 70, are , have extremes of body size, muscle mass, or nutritional status, or are non- or non-. According to the National Kidney Foundation, irrespective of diagnosis, the stage of the disease is based on the level of kidney function: Stage Description GFR(mL/min/1.73 m(2)) 1 Kidney damage with normal or decreased GFR 90 2 Kidney damage with mild decrease in GFR 60- 89 3 Moderate decrease in GFR 30-59 4 Severe decrease in GFR 15-29 5 Kidney failure <15 (or dialysis) Procedures Date CPT Code Description Status 06/07/2018 99302 EKG-Tracing And Report Completed 05/14/2018 65001 Doppler ECHO Color Flow Mapping Completed 05/14/2018 91140 Doppler Echocardiogram Complete Completed 05/14/2018 19680 Transesophageal Echocardiogram Completed 05/14/2018 59095 EKG Interpretation And Report Only Completed 05/14/2018 11985 Cardioversion External Completed 04/23/2018 18040 Stress Test Interpre And Report Only Completed 04/23/2018 67684 Stress Test Physician Super Only Completed 04/23/2018 81051 Myocardial Imaging Tomographic Multiple Study AT Rest Completed Or Stress 04/19/2018 65615 Event Monitor Inter/Review Only Completed 04/10/2018 43732 EKG-Tracing And Report Completed 03/26/2018 22587 Doppler ECHO Color Flow Mapping Completed 03/26/2018 87130 Doppler Echocardiogram Complete Completed 03/26/2018 98139 Transesophageal Echocardiogram Completed 03/25/2018 55456 Echocardiogram Complete Completed 11/09/2008 56983 EKG-Tracing And Report Completed 12/12/2005 55885 Tympanometry Completed 01/10/2000 32073 EKG-Tracing And Report Completed Encounters Type Date Location Provider CPT E/M Dx Office Visit 06/07/2018 11:00a Cardiology Office Santiago Cunha, 95595 I42.9 Juan Carlos, [facility] I48.0 I10 E78.5 Office Visit 05/20/2018 11:00a Primary Care Office Kate Vora, 82166 E78.2 RPAC I50.22 I48.91 L30.9 Office Visit 04/10/2018 2:00p [place] [address] I48.91 I50.22 I42.9 I31.3 I10 E78.2 Office Visit 04/02/2018 1:00p Primary Care Office Kate Vora, 99250 I48.0 RPAC I50.20 R05 Office Visit 03/25/2018 8:45a [place], [address] 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561 I10 E78.5 Office Visit 02/15/2015 9:30a Primary Care Office Kate Vora, 72751 V70.0 RPAC 238.2 401.1 272.4 Plan of Care Future Appointment(s):09/13/2018 1:40 pm - Santiago Cunha M.D., FACC at Cardiology [id number]/20/2018 9:30 am - Kate Vora, [facility] at Primary Care [id number]/07/2018 - Santiago Cunha M.D., FACCI42.9 Cardiomyopathy, unspecifiedNew Orders:EchocardiogramComments:He may have tachyCMP. He is feeling much better. He is not in failure. Will need to DC metoprolol because severe bradycardia. He will will have an echo in 3 months.I48.0 Paroxysmal atrial fibrillationComments:He has remained in SR after ECV and on amiodarone. Will continue with Eliquis and amiodarone. Will DC digoxin and metoprolol because of SB.I10 Essential (primary) hypertensionComments:Controlled No changes.E78.5 Hyperlipidemia, unspecifiedComments:On statin.AllFollow up:Follow up visit in three months.
[2018-06-22 08:19] VITALS: BP 157/69
--- NOTE | 2018-06-22 09:23 | UC ---
Knee Pain HPI - HPI Summary HPI Summary: 62 year old male with knee pain .c/o pain, redness, swelling to right knee worsening over 3 days. Is using a cane to get around when usually does not have a problem. History of gout, patient also concerned about blood clot. Patient does have atrial fibrillation and currently is on an anticoagulant. He has never had a blood clot before but wasn't sure if the swelling could be a concern. He has had gout multiple times and it did cause severe pain and tenderness which she currently is having in that right knee as he did have previously with a gout attack. He does not think it is a clot but just wanted to discuss this. He denies any fevers or shortness of breath. The pain is located on the front and side of the knee. Normal to no pain in the posterior knee and no calf pain. [ End ] - History of Current Complaint Chief Complaint: UCLowerExtremity Stated Complaint: RIGHT LEG SWELLING Time Seen by Provider: 06/22/18 09:20 Hx Obtained From: Patient Onset/Duration: Gradual Onset Severity Initially: Moderate Severity Currently: Severe Pain Intensity: 10 Character: Throbbing, Stiffness Aggravating Factor(s): Movement, Weight Bearing Alleviating Factor(s): Rest Able to Bear Weight: Yes Related History: Similar Episode/Dx as - Allergies/Home Medications Allergies/Adverse Reactions: Allergies Allergy/AdvReac Type Severity Reaction Status Date / Time No Known Allergies Allergy Verified 06/22/18 08:12 Home Medications: Home Medications Amiodarone TAB* [Cordarone Tab*] 200 mg PO DAILY 06/22/18 [History Confirmed ] Apixaban* [Eliquis*] 5 mg PO DAILY 06/22/18 [History Confirmed 06/22/18] Diltiazem TAB* [Cardizem 60 MG Tab*] 240 mg PO DAILY 06/22/18 [History Confirmed 06/22/18] Famotidine TAB* [Pepcid 20 MG TAB*] 40 mg PO DAILY 06/22/18 [History Confirmed 06/22/18] Furosemide TAB* [Lasix TAB*] 40 mg PO DAILY 06/22/18 [History Confirmed 06/22/18 ] Ipratropium Br (Nf)0.03% Nasal [Ipratropium Arnett] 0.03 % NA 06/22/18 [History ] Rosuvastatin Calcium [Crestor] 40 mg PO DAILY 06/22/18 [History Confirmed ] Sacubitril/Valsartan (NF) [Entresto (NF)] 1 tab PO BID 06/22/18 [ History Confirmed 06/22/18] Spironolactone TAB* [Aldactone TAB 25 MG*] 25 mg PO DAILY 06/22/18 [History Confirmed 06/22/18] ValACYclovir (*) [Valtrex 500 mg (*)] 500 mg PO DAILY 06/22/18 [History Confirmed 06/22/18] PMH/Surg Hx/FS Hx/Imm Hx Previously Healthy: Yes Endocrine History: Dyslipidemia Cardiovascular History: Cardiac Disease, Atrial Fibrillation - Surgical History Surgical History: Yes Surgery Procedure, Year, and Place: breast tumor removal. Cardioversion 06/2018 - Family History Known Family History: Positive: Hypertension - Social History Occupation: Unemployed Alcohol Use: None Alcohol Amount: 2 beers Substance Use Type: None Smoking Status (MU): Former Smoker When Did the Patient Quit Smoking/Using Tobacco: 36 yrs Review of Systems Constitutional: Negative Skin: Negative Eyes: Negative ENT: Negative Respiratory: Negative Cardiovascular: Negative Gastrointestinal: Negative Genitourinary: Negative Motor: Decreased ROM Neurovascular: Negative Musculoskeletal: Arthralgia, Edema Neurological: Negative Psychological: Negative Is Patient Immunocompromised?: No All Other Systems Reviewed And Are Negative: Yes Physical Exam Triage Information Reviewed: Yes Appearance: Well-Appearing, Well-Nourished Vital Signs: Initial Vital Signs Temp 98.3 F 06/22/18 08:09 Pulse 84 06/22/18 08:09 Resp 14 06/22/18 08:09 BP 157/69 06/22/18 08:09 Pulse Ox 100 06/22/18 08:09 Vital Signs Reviewed: Yes Eyes: Positive: Conjunctiva Clear ENT: Positive: Hearing grossly normal Respiratory Exam: Normal Cardiovascular Exam: Normal Musculoskeletal Exam: Normal Musculoskeletal: Positive: Strength Intact, ROM Intact, Edema @, Other: - Right knee with mild swelling and erythema. Significant tenderness to palpation of the medial and anterior knee. Negative Homans sign. No popliteal fossa tenderness to palpation. Full range of motion. Mild diffuse swelling of the anterior knee and slightly distal to that. No induration and no abscess no ecchymosis no streaking. Neurological Exam: Normal Psychological Exam: Normal Skin Exam: Normal Knee Pain Course/Dx - Course Course Of Treatment: Patient and I discussed at length if there was any concern for a blood clot to go to Hospital for ultrasound as we do not have ultrasound here today. He is already on double anticoagulant therefore is on the appropriate treatment if there was a concern for a clot. Being he has had multiple episodes of gout in the same knee and it feels just like it did previously and he responded well to colchicine we will give this to him at this time. If the swelling worsens or spreads or any concerns with shortness of breath he is well aware to go to the emergency room directly. I advised for him to think about going anyways at this time for ultrasound but he desires to treat this as a gout attack at this time. He shows no signs and symptoms otherwise of a concern for a DVT or pulmonary embolism. - Differential Dx/Diagnosis Differential Diagnosis/HQI/PQRI: Bursitis, Cellulitis, Gout, Internal Derangement Of Knee, Infection, Sprain, Strain, Tendonitis Provider Diagnoses: gout Discharge - Sign-Out/Discharge Documenting (check all that apply): Patient Departure All imaging exams completed and their final reports reviewed: No Studies - Discharge Plan Condition: Good Disposition: HOME Prescriptions: predniSONE [Prednisone 20 MG TAB] 20 mg PO BID #10 tablet Patient Education Materials: Gout (ED) Referrals: Kate Vora PA [Primary Care Provider] - 4 Days - Billing Disposition and Condition Condition: GOOD Disposition: Home
== END 2018-06-22 09:44 | disposition home or self-care (01) ==
LOC: UCCORT 07:52
DX: M10.9 Gout, unspecified (principal); I48.91 Unspecified atrial fibrillation; Z79.01 Long term (current) use of anticoagulants; E78.5 Hyperlipidemia, unspecified; Z87.891 Personal history of nicotine dependence
CPT/HCPCS: 99212; G0463